=== PATIENT | male | born 1980 | race Caucasian/White ===

== ENCOUNTER 2017-10-28 18:48 | Emergency (ER) | payer SELFPAY ==
--- NOTE | 2017-10-28 18:53 | NURSING ---
PT WAS FOUND UP IN PCU PANICING TRYING TO FIND A DOC. BROUGHT DOWN BY CAUSTIC OPERATOR. PT BROUGHT INTO TRIAGE ROOM TO SIT DOWN. PT C/O BEE STING TO LEG, FEELING FLUSHED AND ANXIOUS. PT WAS HYPERVENTILATING AND COULD NOT SIT STILL. HR 121 R 34 AND PULSE OX 98%. PT KEPT SAYING HE NEEDED TO LAY DOWN. PT STARTED TO GET PALE. THIS RN RAN FOR A WHEELCHAIR. PT THEN PASSED OUT FALLING ONTO THE FLOOR FROM THE CHAIR. STAFF ASSIST CALLED. PT WAS ROLLED OVER AND BECAME RESPONSIVE ABOUT 1 MINUTE LATER. PT WAS VERY PANICY AND ANXIOUS WHEN HE CAME TO. PT HELPED UP AND INTO THE WHEELCHAIR AND TAKEN BACK TO AN ER ROOM.
[2017-10-28 18:54] VITALS: BP 75/45; PULSE 90; RESP 13; TEMP 36.7; O2SAT 94; BMI 24.0
[2017-10-28] MEDS: MethylPREDNISolone 125 MG/2 ML Vial IV (19:00)
[2017-10-28] MEDS: DiphenhydrAMINE 50 MG/ML Syringe IV (19:00)
[2017-10-28 19:01] VITALS: BP 79/53; PULSE 98; RESP 26; O2SAT 94
[2017-10-28 19:04] VITALS: BP 112/78; PULSE 101; RESP 19; O2SAT 95
[2017-10-28] MEDS: 0.9% Normal Saline 1,000 ML 1000 ML IV (19:11)
--- NOTE | 2017-10-28 19:48 | ED.RN ---
CALLED FOR EKG PER RN REQUEST, PULLED OLD EKG FOR
[2017-10-28 21:00] VITALS: BP 134/91; PULSE 100; RESP 19; O2SAT 99
--- NOTE | 2017-10-28 22:32 | ED.DCSUM_ITS ---
- ER Visit Summary Date of Service: 10/28/17 Chief Complaint: [Allergic reaction] History of Present Illness: The patient is a 37 M [presents the emergency department complaint of allergic reaction to bee sting that occurred about 40 minutes ago. Patient states that he was stung on his right calf. Patient has had one other bee sting that he can recall and which time he did not have any significant reaction to. While in triage patient became lightheaded and had a syncopal episode therefore was brought back to her room immediately. While back in the room patient was noted to be hypotensive with a systolic blood pressure in the 60s. Patient complaining of feeling itchy and flushed. Patient was complaining of some difficulty breathing. He denies difficulty swallowing.] Physical Examination: [HEENT-PERRLA, EOMI. Cranial nerves II through XII grossly intact. TMs clear. Mucous membranes moist. No adenopathy. No angioedema noted. Patient does have some edema and erythema of the ears. Cardiovascular-regular rate and rhythm without murmur or ectopy Lungs-clear to auscultation, chest wall stable without crepitus or subcu emphysema Abdomen-normoactive bowel sounds, soft, nontender, no rebound or rigidity, no peritoneal signs. Skin exam-patient has diffuse erythema to the skin noted. Extremities-intact ?4, normal range of motion, normal pulses, atraumatic] Test Results: [None indicated] Emergency Department Course and Treatment: [Patient received IM 0.3 mg of epinephrine on arrival. Patient was given Solu-Medrol 125 mg IV, Benadryl 50 mg IV, and Pepcid 40 mg IV. Patient was observed in the department 4 hours and he had continued improvement of all symptoms. Patient was able to ambulate to the bathroom and back without difficulty. Patient is requesting to be discharged.] Treatment Plan: [Patient will be given a prescription for 3 days worth of prednisone and will dispense and EpiPen.] Disposition: [Discharged home in stable condition] Impression: [Anaphylactic reaction to bee sting] This note was generated with [employer] dictation software. It may contain incorrect words, spelling, and punctuation that were not noted in review of the chart prior to signing ED Disposition - Plan for ED Patient: Chief Complaint: Allergic Reaction Referrals: Placido Cole DO [Primary Care Provider] -
--- NOTE | 2017-10-28 22:32 | ED.DEP ---
ED Disposition - Plan for ED Patient: Chief Complaint: Allergic Reaction Instructions: ED Bite Sting Insect Gen Allergic React Prescriptions: Epinephrine [Epi Pen] 0.3 mg IM X1 PRN #1 syringe PRN Reason: Anaphylaxis Prednisone [Deltasone] 20 mg PO BID #6 tab Referrals: Placido Cole DO [Primary Care Provider] - As Needed
[2017-10-28 22:45] VITALS: BP 137/84; PULSE 84; RESP 18; O2SAT 100
== END 2017-10-28 22:47 | disposition home or self-care (01) ==
LOC: ED 19:53
PROVIDERS: Emergency Provider Emergency Medicine; Family Provider Family Medicine; PCP Family Medicine
DX: T63.441A Toxic effect of venom of bees, accidental (unintentional), initial encounter (principal); T78.2XXA Anaphylactic shock, unspecified, initial encounter; Y92.9 Unspecified place or not applicable; Z72.0 Tobacco use
CPT/HCPCS: 80320; 96361; 96372; 96374; 96375; 96376; 99283; J7030; G0480; J3490

== ENCOUNTER 2019-03-05 21:01 | Emergency (ER) | payer SELFPAY ==
[2019-03-05 21:02] VITALS: BP 139/84; PULSE 94; RESP 16; TEMP 36.2; O2SAT 93; BMI 24.3
--- NOTE | 2019-03-05 21:19 | CT_ITS ---
STUDY: CT BRAIN WITHOUT CONTRAST REASON FOR EXAM: Male, 38 years old. Altered mental status. Confusion RADIATION DOSAGE (If Supplied By Facility): CTDIvol = ( 44.99 ) mGy, DLP = ( 779.24 ) mGycm TECHNIQUE: Transaxial CT imaging of the brain was performed without administration of intravenous contrast material. Individualized dose optimization techniques were used for this CT. COMPARISON: No relevant priors. FINDINGS: Normal soft tissue structures. Normal calvarium. Normal size ventricles and extra-axial spaces for the patient's age. Normal white matter tracts of the cerebral hemispheres. Normal basal ganglia and thalami. Normal brainstem. Normal cerebellum. There is no intracranial hemorrhage. There are no findings of an acute ischemic infarction. Normal visualized paranasal sinuses. CT/Brain/Head without Contrast IMPRESSION: Normal unenhanced CT scan of the brain. Electronically Signed: Daquan Weldon MD at 22:24 EST , Service support ,
--- NOTE | 2019-03-05 21:20 | EKG12_ITS ---
Test Reason : ALT LOC Blood Pressure : / mmHG Vent. Rate : 090 BPM Atrial Rate : 090 BPM P-R Int : 156 ms QRS Dur : 100 ms QT Int : 362 ms P-R-T Axes : 024 249 034 degrees QTc Int : 442 ms Normal sinus rhythm Right superior axis deviation Septal infarct , age undetermined Abnormal ECG Confirmed by CHIRAG DOTY, NATHAN ([id number]), copy editor BIGG LOPEZ ([id number] on 03/07/2019 11:02:19 AM Referred By: SILVERIO Confirmed By:NATHAN BEARD MD
[2019-03-05 21:31] LABS: Absolute Lymphocyte Count 2.25 X10^3/uL (0.83-4.51); Absolute Neutrophil Count 3.4 X10^3/uL (2.0-7.7); Basophil# 0.12 X10^3/uL; Basophil% 1.8 % (0-1); Eosinophil# 0.05 X10^3/uL; Eosinophils% 0.8 % (0-5); Hematocrit 44.3 % (40-54); Hemoglobin 15.2 g/dL (13.0-16.5); Lymphocyte # 2.25 X10^3/ul (4.0); Mean Corp Hgb Conc 34.3 g/dL (32-36); Mean Corpuscular Hgb 30.4 pg (27.0-32.0); Mean Corpuscular Volume 88.6 fL (80-94); Mean Platelet Vol. 9.3 fl (6.2-12.0); Monocyte# 0.82 X10^3/uL; Monocyte% 12.4 % (0-10); NRBC Flagged by Analyzer 0 % (0-5); Neutrophil # 3.37 X10^3/uL (2.7-7.7); Neutrophil % 50.8 % (47-70); POSITIVE COUNT YES; Platelet Count 98 K/mm3 (150-450); RBC Distribution Width CV 13.5 % (11.6-14.6); RBC Distribution Width SD 44.1 fl (35.1-43.9); White Blood Count 6.6 K/mm3 (4.4-11.0)
[2019-03-05 21:42] LABS: Differential Indicated SCAN CRITERIA MET
[2019-03-05 21:52] LABS: AST(SGOT) 150 U/L (15-37); Alanine Aminotransfer ALT/SGPT 75 U/L (16-61); Alkaline Phosphatase 108 U/L (45-117); Anion Gap 11 (5-15); BUN 10 mg/dL (7-18); BUN/Creat Ratio 12.8 RATIO (10-20); Bilirubin, Direct 0.26 mg/dL (0.00-0.30); Calcium,Total 8.4 mg/dL (8.5-10.1); Chloride 103 mmol/L (98-107); Creatinine, Serum 0.78 mg/dL (0.70-1.30); EST Glomerular Filtration Rate 116 mL/min (>60); Est Glom Filt Rate - Afr Amer 141 mL/min (>60); Estimated Creatinine Clearance 146.37 ml/min; Globulin 3.9 g/dL (2.2-4.2); Glucose 88 mg/dL (74-106); Potassium 3.9 mmol/L (3.5-5.1); Protein, Total 7.9 g/dL (6.4-8.2); Sodium Level 140 mmol/L (136-145)
--- NOTE | 2019-03-05 22:02 | ED.DCSUM_ITS ---
- ER Visit Summary Date of Service: 03/05/19 Chief Complaint: Alcohol intoxication, questionable fall versus syncope versus seizure History of Present Illness: The patient is a 38 M who presents with the above symptoms. He has been drinking most of the day. He admits to about 13 beers and 4 shots of alcohol. He was with his female friend and he had a fall/syncope/seizure episode. They were unable to describe it any further. He did hit his head. The patient states he does drink every day and usually is only a couple of drinks. He currently has no complaints. He denies any pain. Physical Examination: Vital signs reviewed. HEENT exam unremarkable. Heart is regular rate and rhythm without murmurs. Lungs are clear to auscultation. Abdomen is soft and nontender. Back exam reveals no tenderness. Extremities reveal no edema. Skin exam normal. Neurologic exam shows the patient is intoxicated but a strength and sensation are equal throughout. Test Results: CAT scan head normal. EKG sinus rhythm with rate of 90. ALT 75, AST 150. Troponin normal. Alcohol level is 542 Emergency Department Course and Treatment: Patient was stable throughout his stay in the emergency department. There is no signs of any seizure-like activity. He does appear intoxicated but has no other physical exam findings. I feel the patient can be discharged home in the care of his mother he will monitor this patient. He will follow-up with his doctor Treatment Plan: [] Disposition: Discharge Impression: Alcohol intoxication This note was generated with [employer] dictation software. It may contain incorrect words, spelling, and punctuation that were not noted in review of the chart prior to signing ED Disposition - Plan for ED Patient: Referrals: Placido Cole DO [Primary Care Provider] -
--- NOTE | 2019-03-05 22:10 | ED.RN ---
Lab called to report ETOH level of 542. Notified Dr. Xavier.
--- NOTE | 2019-03-05 22:37 | ED.DEP ---
ED Disposition - Plan for ED Patient: Disposition: Home or Assisted Living Instructions: Alcohol Intoxication Referrals: Placido Cole DO [Primary Care Provider] -
[2019-03-05 23:07] VITALS: BP 145/98; PULSE 78; RESP 16; O2SAT 98
[2019-03-05 23:24] LABS: Platelet Estimate MOD DEC (ADEQ)
== END 2019-03-05 23:08 | disposition home or self-care (01) ==
PROVIDERS: Emergency Provider Emergency Medicine; Family Provider Family Medicine; PCP Family Medicine
DX: F10.129 Alcohol abuse with intoxication, unspecified (principal); Y90.8 Blood alcohol level of 240 mg/100 ml or more
CPT/HCPCS: 70450; 80048; 80076; 80320; 84484; 85025; 93005; 99284; A4216; G0480

== ENCOUNTER → 2019-05-21 10:57 | Outpatient (CLI) | payer SELFPAY ==
[2019-05-21 10:28] VITALS: BMI 23.6
[2019-05-21 12:45] LABS: ALB/GLOB Ratio 0.9 RATIO (0.9-2.4); AST(SGOT) 51 U/L (15-37); Alanine Aminotransfer ALT/SGPT 44 U/L (16-61); Albumin, Serum 3.5 g/dL (3.2-5.0); Alkaline Phosphatase 83 U/L (45-117); Anion Gap 5 (5-15); BUN 6 mg/dL (7-18); BUN/Creat Ratio 6.6 RATIO (10-20); Calcium,Total 8.6 mg/dL (8.5-10.1); Chloride 104 mmol/L (98-107); Cholesterol 307 mg/dL (200); Creatinine, Serum 0.91 mg/dL (0.70-1.30); EST Glomerular Filtration Rate 98 mL/min (>60); Est Glom Filt Rate - Afr Amer 118 mL/min (>60); Glucose 147 mg/dL (74-106); High Density Lipoprotein 104 mg/dL; Potassium 4.1 mmol/L (3.5-5.1); Protein, Total 7.5 g/dL (6.4-8.2); Sodium Level 137 mmol/L (136-145); Triglycerides 255 mg/dL; Very Low Density Lipoprotein 51 mg/dL (5-40)
== END ==
LOC: BIMLAB 10:57
PROVIDERS: PCP Family Medicine; Referring Provider Family Medicine; Visit Provider Family Medicine
DX: E78.5 Hyperlipidemia, unspecified (principal)
CPT/HCPCS: 36415; 80053; 80061

== ENCOUNTER → 2020-06-16 15:19 | Outpatient (CLI) | payer SELFPAY ==
[2020-06-16 14:43] VITALS: BMI 22.7
[2020-06-16 17:40] LABS: ALB/GLOB Ratio 1.1 RATIO (0.9-2.4); AST(SGOT) 193 U/L (15-37); Alanine Aminotransfer ALT/SGPT 79 U/L (16-61); Albumin, Serum 3.7 g/dL (3.2-5.0); Alkaline Phosphatase 147 U/L (45-117); Anion Gap 7 (5-15); BUN 7 mg/dL (7-18); BUN/Creat Ratio 7.9 RATIO (10-20); Calcium,Total 8.2 mg/dL (8.5-10.1); Chloride 102 mmol/L (98-107); Cholesterol 271 mg/dL (200); Creatinine, Serum 0.89 mg/dL (0.70-1.30); EST Glomerular Filtration Rate 100 mL/min (>60); Est Glom Filt Rate - Afr Amer 121 mL/min (>60); Globulin 3.5 g/dL (2.2-4.2); Glucose 83 mg/dL (74-106); High Density Lipoprotein 131 mg/dL; Potassium 4.1 mmol/L (3.5-5.1); Protein, Total 7.2 g/dL (6.4-8.2); Sodium Level 140 mmol/L (136-145); Triglycerides 291 mg/dL; Very Low Density Lipoprotein 58 mg/dL (5-40)
== END ==
LOC: BIMLAB 15:20
PROVIDERS: PCP Family Medicine; Referring Provider Family Medicine; Visit Provider Family Medicine
DX: E78.5 Hyperlipidemia, unspecified (principal)
CPT/HCPCS: 36415; 80053; 80061

== ENCOUNTER 2020-07-15 18:04 | Emergency (ER) | payer OTHER, SELFPAY ==
[2020-06-16 14:43] VITALS: BMI 22.7
[2020-07-15 18:05] VITALS: BP 145/101; PULSE 107; RESP 16; TEMP 36.2; O2SAT 99; BMI 23.1
--- NOTE | 2020-07-15 18:35 | EKG12_ITS ---
Test Reason : DYSRHYTHMIA Blood Pressure : / mmHG Vent. Rate : 090 BPM Atrial Rate : 090 BPM P-R Int : 178 ms QRS Dur : 092 ms QT Int : 356 ms P-R-T Axes : 051 267 059 degrees QTc Int : 435 ms Normal sinus rhythm Right superior axis deviation Cannot rule out Anterior infarct (cited on or before 31-JUL-2013) Abnormal ECG Confirmed by CHIRAG DOTY, NATHAN ([id number]), digital editor ROJAS BARAJAS ([id number]) on 07/19/2020 2:18:59 PM Referred By: JOSE Confirmed By:NATHAN BEARD MD
--- NOTE | 2020-07-15 18:49 | ED.DCSUM_ITS ---
- ER Visit Summary Date of Service: 07/15/20 Chief Complaint: Syncope History of Present Illness: The patient is a 39 M who presents with a syncopal episode that occurred today. Patient remembers being at work and talking to a friend on the phone. Patient states the next thing he remembers was somebody regino ventura to wake him up. Patient states that the time that passed from him talking on the phone until somebody was trying to wake him up was approximately 20 minutes. Patient denies any chest pain. Patient denies any palpitations. Patient denies any lightheadedness or dizziness. Currently, patient denies any symptoms. Patient states he has never done this in the past. Physical Examination: Vital signs are stable. Patient is afebrile. Patient is in no acute distress. Oral mucosa is pink and moist. Neck is supple. Trachea is midline. There is no JVD noted. Heart was regular rate and rhythm. Lungs are clear and equal bilaterally. Abdomen is soft. Bowel sounds are normal. There is no tenderness. There is no rebound or guarding noted. Skin is warm dry. Cranial nerves II through XII are intact. There are no focal motor or sensory deficits noted. Extremities are intact. There is no calf tenderness or edema. Test Results: EKG was obtained. On my interpretation, it showed a normal sinus rhythm with a rate of 90. FL interval, QRS interval, and QTc intervals were all normal. There is extreme right axis deviation at 267. There are no acute ST or T wave changes. CBC shows white blood cell count 3.5 and a thrombocytopenia of 42. Comprehensive metabolic profile shows slightly elevated alk phos of 161, a AST of 321, and ALT of 88. Lipase was normal. Troponin was normal. CT scan of the brain was recommended however, patient refused. Emergency Department Course and Treatment: Patient stated he wanted to go home. Patient does not want to stay for any further testing or results. Patient was advised that his platelets are low and that is the reason I recommended obtaining a CT scan of his brain. Patient does not want to stay for that. Patient wants to leave AGAINST MEDICAL ADVICE. Patient was advised of possible intracranial bleeding and risk of . Patient understands and is agreeable. Patient will leave AGAINST MEDICAL ADVICE. Disposition: Discharge AGAINST MEDICAL ADVICE Impression: 1. Syncope This note was generated with [employer] software. It may contain incorrect words, spelling, and punctuation that were not noted in review of the chart prior to signing ED Disposition - Plan for ED Patient: Disposition: Against Medical Advice Diagnosis: Syncope Instructions: ED Fainting, Uncertain Cause Referrals: Placido Cole DO [Primary Care Provider] - 3-5 Days
[2020-07-15] MEDS: 0.9% Normal Saline 1,000 ML 1000 ML IV (18:52)
[2020-07-15 19:00] LABS: Absolute Lymphocyte Count 1.12 X10^3/uL (0.83-4.51); Absolute Neutrophil Count 1.9 X10^3/uL (2.0-7.7); Basophil# 0.07 X10^3/uL; Eosinophil# 0.01 X10^3/uL; Eosinophils% 0.3 % (0-5); Hematocrit 39.4 % (40-54); Hemoglobin 13.3 g/dL (13.0-16.5); Lymphocyte # 1.12 X10^3/ul (4.0); Lymphocyte % 31.6 % (19-41); Mean Corp Hgb Conc 33.8 g/dL (32-36); Mean Corpuscular Hgb 31.1 pg (27.0-32.0); Mean Corpuscular Volume 92.1 fL (80-94); Mean Platelet Vol. 11.4 fl (6.2-12.0); Monocyte# 0.43 X10^3/uL; Monocyte% 12.1 % (0-10); NRBC Flagged by Analyzer 0 % (0-5); Neutrophil # 1.91 X10^3/uL (2.7-7.7); POSITIVE COUNT YES; RBC Distribution Width CV 13.7 % (11.6-14.6); RBC Distribution Width SD 46.5 fl (35.1-43.9); Red Blood Count 4.28 M/mm3 (4.6-6.2); White Blood Count 3.5 K/mm3 (4.4-11.0)
[2020-07-15 19:01] LABS: Differential Indicated SCAN CRITERIA MET
[2020-07-15 19:02] LABS: Platelet Count 42 K/mm3 (150-450)
[2020-07-15 19:06] LABS: Prothrombin Time (Protime)PT. 12.8 SECONDS (11.7-14.9)
[2020-07-15 19:07] LABS: Partial Thromboplast Time 26.9 Seconds (24.1-36.2)
[2020-07-15 19:51] LABS: ALB/GLOB Ratio 0.8 RATIO (0.9-2.4); AST(SGOT) 321 U/L (15-37); Alanine Aminotransfer ALT/SGPT 88 U/L (16-61); Albumin, Serum 3.3 g/dL (3.2-5.0); Alkaline Phosphatase 161 U/L (45-117); Anion Gap 6 (5-15); BUN 5 mg/dL (7-18); BUN/Creat Ratio 5.7 RATIO (10-20); Chloride 103 mmol/L (98-107); Creatinine, Serum 0.87 mg/dL (0.70-1.30); EST Glomerular Filtration Rate 102 mL/min (>60); Est Glom Filt Rate - Afr Amer 124 mL/min (>60); Estimated Creatinine Clearance 132.62 ml/min; Glucose 89 mg/dL (74-106); Lipase 347 U/L (73-393); Potassium 3.9 mmol/L (3.5-5.1); Protein, Total 7.3 g/dL (6.4-8.2); Sodium Level 138 mmol/L (136-145)
[2020-07-15 19:56] VITALS: PULSE 98; RESP 16; O2SAT 97
[2020-07-15 20:02] LABS: Differential Comment SCANNED
[2020-07-16 13:10] LABS: Pathologist Review Reviewed
== END 2020-07-15 19:57 | disposition left against medical advice (07) ==
PROVIDERS: Emergency Provider Emergency Medicine; PCP Family Medicine
DX: R55 Syncope and collapse (principal); D69.6 Thrombocytopenia, unspecified; F41.9 Anxiety disorder, unspecified; Z53.29 Procedure and treatment not carried out because of patient's decision for other reasons; Z72.0 Tobacco use
CPT/HCPCS: 80053; 83690; 84484; 85025; 85610; 85730; 93005; 96360; 99283; J7030

== ENCOUNTER → 2022-02-28 | Outpatient (CLI) | payer MEDICAID, SELFPAY ==
[2022-02-28 12:48] LABS: ALB/GLOB Ratio 0.8 RATIO (0.9-2.4); AST(SGOT) 16 U/L (15-37); Alanine Aminotransfer ALT/SGPT 23 U/L (16-61); Albumin, Serum 3.3 g/dL (3.2-5.0); Alkaline Phosphatase 82 U/L (45-117); Anion Gap 7 (5-15); BUN 9 mg/dL (7-18); BUN/Creat Ratio 12.4 RATIO (10-20); Chloride 101 mmol/L (98-107); Cholesterol 276 mg/dL (200); Creatinine, Serum 0.73 mg/dL (0.70-1.30); EST Glomerular Filtration Rate 125 mL/min (>60); Est Glom Filt Rate - Afr Amer 151 mL/min (>60); Globulin 4.2 g/dL (2.2-4.2); Glucose 90 mg/dL (74-106); High Density Lipoprotein 36 mg/dL; Protein, Total 7.5 g/dL (6.4-8.2); Sodium Level 137 mmol/L (136-145); Triglycerides 303 mg/dL; Very Low Density Lipoprotein 61 mg/dL (5-40)
== END | disposition home or self-care (01) ==
LOC: BIMLAB 11:27
PROVIDERS: PCP Family Medicine; Referring Provider Family Medicine; Visit Provider Family Medicine
DX: R74.8 Abnormal levels of other serum enzymes (principal); E78.5 Hyperlipidemia, unspecified; F10.10 Alcohol abuse, uncomplicated
CPT/HCPCS: 36415; 80053; 80061